=== PATIENT | female | born 1950 | race Caucasian/White ===

== ENCOUNTER 2017-02-09 07:32 | Emergency (ER) | payer OTHER, MEDICAID ==
--- NOTE | 2017-02-09 07:36 | EDPHY ---
HPI/HX/ROS/PE/MDM Narrative: CHIEF COMPLAINT: N/V/D HPI: The patient is a 66-year-old female who complains of nausea, vomiting, and diarrhea that started around 12 a.m. last night. She has associated abdominal discomfort secondary to vomiting and diarrhea. Patient ate BBQ yesterday and believes her symptoms are related to bad BBQ. She denies bloody stool or hematemesis. No fever. BP during transport was 156/108. REVIEW OF SYSTEMS: Aside from elements discussed in the HPI, a comprehensive 10-point review of systems was reviewed and is negative. PMH: HTN, Asthma PSH: Hysterectomy, Appendectomy. Previous large abdominal surgery that patient cannot describe. SOCIAL HISTORY: Homeless PHYSICAL EXAM: General: Patient is alert, in no acute distress. ENT: Eyes are normal to inspection. ENT inspection normal. Neck: Normal inspection. Full range of motion. Respiratory: No respiratory distress. Breath sounds normal bilaterally. Cardiovascular: Regular rate and rhythm. Strong peripheral pulses. Abdomen: The abdomen is nontender to palpation. There are no peritoneal signs. There are normal bowel sounds. Back: Normal to inspection. No tenderness to palpation. Skin: Normal color. No rash. Warm and dry. Extremities: Normal appearance. Full range of motion. Neuro: Oriented x3. Normal motor function. Normal sensory function. ED Course: Patient is receiving IV fluids. Plan to check basic lab work. Abdominal x-ray ordered. Patient is tolerating ice chips. She continues to have diarrhea. Plan for Imodium. MDM: This patient presents with nausea and diarrhea since last night that sounds most consistent with gastroenteritis or possible food-borne illness. She is afebrile and well-appearing, her abdomen is benign. She denies dysuria. Given history of prior surgeries, we performed an abdominal XR which is negative for obvious obstruction. The patient has a normal WBC. She is tolerating PO here in the ED without difficulty. I think diverticulitis, bowel obstruction, bowel perforation, abdominal trauma or pyelo are unlikely. - Data Points Imaging Results: Imaging Impressions Abdomen X-Ray 02/09/17 08:34 Impression: 1. No acute findings in the abdomen. 2. Probable hiatal hernia. 3. Left basilar atelectasis. Imaging: I viewed and interpreted images myself Laboratory Results: Laboratory Results 02/09/17 07:48 02/09/17 07:48 02/09/17 02/09/17 07:48 07:48 WBC 9.33 10^3/uL 10^3/uL (3.80-9.50) RBC 4.70 10^6/uL 10^6/uL (4.18-5.33) Hgb 14.6 g/dL g/dL (12.6-16.3) Hct 43.1 % % (38.0-47.0) MCV 91.7 fL fL (81.5-99.8) MCH 31.1 pg pg (27.9-34.1) MCHC 33.9 g/dL g/dL (32.4-36.7) RDW 12.4 % % (11.5-15.2) Plt Count 212 10^3/uL 10^3/uL (150-400) MPV 10.8 fL fL (8.7-11.7) Neut % (Auto) 91.0 % H % (39.3-74.2) Lymph % (Auto) 4.3 % L % (15.0-45.0) [place] % (Auto) 3.3 % L % (4.5-13.0) Eos % (Auto) 0.9 % % (0.6-7.6) Baso % (Auto) 0.1 % L % (0.3-1.7) Nucleat RBC Rel Count 0.0 % % (0.0-0.2) Absolute Neuts (auto) 8.49 10^3/uL H 10^3/uL (1.70-6.50) Absolute Lymphs (auto) 0.40 10^3/uL L 10^3/uL (1.00-3.00) Absolute Monos (auto) 0.31 10^3/uL 10^3/uL (0.30-0.80) Absolute Eos (auto) 0.08 10^3/uL 10^3/uL (0.03-0.40) Absolute Basos (auto) 0.01 10^3/uL L 10^3/uL (0.02-0.10) Absolute Nucleated RBC 0.00 10^3/uL 10^3/uL (0-0.01) Immature Gran % 0.4 % % (0.0-1.1) Immature Gran # 0.04 10^3/uL 10^3/uL (0.00-0.10) Sodium 145 mEq/L H mEq/L (134-144) Potassium 4.3 mEq/L mEq/L (3.5-5.2) Chloride 113 mEq/L H mEq/L (97-110) Carbon Dioxide 20 mEq/l L mEq/l (22-31) Anion Gap 12 mEq/L mEq/L (8-16) BUN 19 mg/dL mg/dL (7-23) Creatinine 0.7 mg/dL mg/dL (0.6-1.0) Estimated GFR > 60 Glucose 107 mg/dL H mg/dL (70-100) Calcium 9.2 mg/dL mg/dL (8.5-10.4) Total Bilirubin 0.5 mg/dL mg/dL (0.1-1.4) Conjugated Bilirubin 0.1 mg/dL mg/dL (0.0-0.5) Unconjugated Bilirubin 0.4 mg/dL mg/dL (0.0-1.1) AST 20 IU/L IU/L (14-46) ALT 27 IU/L IU/L (9-52) Alkaline Phosphatase 92 IU/L IU/L (38-126) Total Protein 6.8 g/dL g/dL (6.3-8.2) Albumin 3.7 g/dL g/dL (3.5-5.0) Lipase 41.0 IU/L IU/L (23-300) Medications Given: Discontinued Medications Sodium Chloride (Ns) 1,000 mls @ 0 mls/hr IV EDNOW ONE; Wide Open PRN Reason: Protocol Stop: 02/09/17 07:41 Last Admin: 02/09/17 07:46 Dose: 1,000 mls Loperamide HCl (Imodium) 4 mg PO EDNOW ONE Stop: 02/09/17 10:29 Last Admin: 02/09/17 10:30 Dose: 4 mg General Initial Vital Signs: Initial Vital Signs Temperature (C) 37.1 C 02/09/17 07:33 Heart Rate 114 H 02/09/17 07:33 Respiratory Rate 20 02/09/17 07:33 Blood Pressure 152/100 H 02/09/17 07:33 O2 Sat (%) 93 02/09/17 07:33 O2 Delivery Mode Room Air Allergies/Adverse Reactions: acetaminophen [From Darvocet-N] Allergy (Verified 06/15/16 09:14) codeine Allergy (Verified 06/15/16 09:14) propoxyphene napsylate [From Darvocet-N] Allergy (Verified 06/15/16 09:14) Home Medications: Medication Instructions Recorded Lisinopril/Hctz Unk Dose 08/10/14 Meclizine HCl [Meclizine HCl 25 mg 25 mg PO BID PRN #20 tab 08/10/14 (RX,OTC)] Ondansetron Odt [Zofran Odt] 4 mg PO Q4PRN PRN #20 tab 08/10/14 Qvar Unk Dose 08/10/14 Synthroid Unk Dose 08/10/14 Vicodin Unk Dose 08/10/14 Cephalexin [Keflex (RX)] 500 mg PO QID 7 Days 06/15/16 Doxycycline Hyclate [Vibramycin 100 mg PO BID #14 cap 06/15/16 100 MG (*)] Sulfamethox/Tmp 800/160 mg 1 tab PO BID #14 tab 06/15/16 [Bactrim Ds] Departure - Departure Disposition: Home, Routine, Self-Care Clinical Impression: Diarrhea Qualifiers: Diarrhea type: unspecified type Qualified Code(s): R19.7 - Diarrhea, unspecified Vomiting Qualifiers: Vomiting type: unspecified Vomiting Intractability: non-intractable Nausea presence: with nausea Qualified Code(s): R11.2 - Nausea with vomiting, unspecified Condition: Good Instructions: Acute Nausea and Vomiting (ED), Acute Diarrhea (ED) Additional Instructions: I recommend a clear liquid diet with gradual diet advancement over the next 24 hours. Followup with your primary care physician if symptoms persist. Return to the Emergency Department with new or worsening symptoms. Referrals: [facility],. [Clinic] - As per Instructions Report Scribed for: Jamie Lopez Report Scribed by: Jocelyn Weiss Date of Report: 02/09/17 Time of Report: 07:35 Physician Review and Approval Statement: Portions of this note were transcribed by a medical library assistant. I personally performed the history, physical exam, and medical decision-making; and confirmed the accuracy of the information in the transcribed note.
[2017-02-09 07:40] VITALS: RESP 20
[2017-02-09] MEDS ORDERED: NS 1,000 ML IV ONE (07:40)
[2017-02-09 08:02] LABS: % IMMATURE GRANULYOCYTES 0.4 % (0.0-1.1); ABSOLUTE IMMATURE GRANULOCYTES 0.04 10^3/uL (0.00-0.10); ADD DIFF? NO; ADD MORPH? NO; ADD SCAN? NO; ATYPICAL LYMPHOCYTE FLAG 0 (0-99); FRAGMENT RBC FLAG 0 (0-99); HEMATOCRIT 43.1 % (38.0-47.0); HEMOGLOBIN 14.6 g/dL (12.6-16.3); LEFT SHIFT FLG 0 (0-99); LIPEMIA HEMOLYSIS FLAG 90 (0-99); MEAN CELL HEMOGLOBIN 31.1 pg (27.9-34.1); MEAN CELL HEMOGLOBIN CONCENTR. 33.9 g/dL (32.4-36.7); MEAN CELL VOLUME 91.7 fL (81.5-99.8); MEAN PLATELET VOLUME 10.8 fL (8.7-11.7); PLATELET CLUMPS FLAG 10 (0-99); PLATELET COUNT 212 10^3/uL (150-400); RED CELL DISTRIBUTION WIDTH 12.4 % (11.5-15.2)
[2017-02-09 08:15] LABS: ALANINE AMINOTRANSFERASE 27 IU/L (9-52); ALBUMIN 3.7 g/dL (3.5-5.0); ALKALINE PHOSPHATASE 92 IU/L (38-126); ANION GAP 12 mEq/L (8-16); ASPARTATE AMINOTRANSFERASE 20 IU/L (14-46); BILIRUBIN,TOTAL 0.5 mg/dL (0.1-1.4); BILIRUBIN-CONJUGATED 0.1 mg/dL (0.0-0.5); BILIRUBIN-UNCONJUGATED 0.4 mg/dL (0.0-1.1); CALCIUM 9.2 mg/dL (8.5-10.4); CARBON DIOXIDE 20 mEq/l (22-31); CHLORIDE 113 mEq/L (97-110); CREATININE 0.7 mg/dL (0.6-1.0); GLOMERULAR FILTRATION RATE > 60; GLUCOSE 107 mg/dL (70-100); POTASSIUM 4.3 mEq/L (3.5-5.2); SODIUM 145 mEq/L (134-144); TOTAL PROTEIN 6.8 g/dL (6.3-8.2)
[2017-02-09] MEDS ORDERED: LOPERAMIDE HCL 2 MG CAP PO ONE (10:28)
[2017-02-09 10:33] VITALS: BP 131/88; PULSE 111; TEMP 98.1; O2SAT 94
== END 2017-02-09 10:59 | disposition home or self-care (01) ==
LOC: EDUNIT#
DX: R19.7 Diarrhea, unspecified (principal); R11.2 Nausea with vomiting, unspecified; E86.9 Volume depletion, unspecified; J45.909 Unspecified asthma, uncomplicated

== ENCOUNTER 2017-07-03 13:50 | Emergency (ER) | payer OTHER, MEDICAID ==
--- NOTE | 2017-07-03 13:53 | EDPHY ---
H & P Time Seen by Provider: 07/03/17 13:52 HPI/ROS: CHIEF COMPLAINT: Diarrhea, nausea HISTORY OF PRESENT ILLNESS: The patient presents the ED with a 1 day history of diarrhea and nausea. The patient reports no prior history of the symptoms. The patient has not been on recent antibiotics. The patient currently is [facility]. The patient takes medications for hypertension and hypothyroidism. The patient denies any drug or alcohol use. The patient does have a prior surgical history significant for appendectomy, cholecystectomy and . The patient denies any dysuria. The patient reports watery diarrhea without evidence of blood. She denies any hematemesis. She denies melena. REVIEW OF SYSTEMS: A comprehensive 10 point review of systems is otherwise negative aside from elements mentioned in the history of present illness. Source: Patient Exam Limitations: No limitations - Medical/Surgical History Hx Asthma: Yes Hx Chronic Respiratory Disease: No Hx Diabetes: No Hx Cardiac Disease: No Hx Renal Disease: No Hx Cirrhosis: No Hx Alcoholism: No Hx HIV/AIDS: No Hx Splenectomy or Spleen Trauma: No Other PMH: PMH: CHF,ASTHMA,HYPOTHYROID,HTN - Social History Smoking Status: Never smoked - Physical Exam Exam: General Appearance: Disheveled, no acute distress Eyes: Pupils equal and round no pallor or injection ENT, Mouth: Dry mucous membranes, poor dentition Respiratory: There are no retractions, lungs are clear to auscultation Cardiovascular: Regular rate and rhythm Gastrointestinal: Abdomen is soft and nontender, no masses, bowel sounds normal Neurological: A&O, normal motor function, normal sensory exam, normal cranial nerves Skin: Warm and dry, no rashes Musculoskeletal: Neck is supple nontender Extremities: symmetrical, full range of motion Psychiatric: Patient is oriented X 3, there is no agitation Constitutional: Initial Vital Signs Temperature (C) 36.7 C 07/03/17 13:58 Heart Rate 114 H 07/03/17 13:58 Respiratory Rate 18 07/03/17 13:58 Blood Pressure 168/87 H 07/03/17 13:58 O2 Sat (%) 93 07/03/17 13:58 O2 Delivery Mode Room Air Allergies/Adverse Reactions: acetaminophen [From Darvocet-N] Allergy (Verified 06/15/16 09:14) codeine Allergy (Verified 06/15/16 09:14) propoxyphene napsylate [From Darvocet-N] Allergy (Verified 06/15/16 09:14) Home Medications: Medication Instructions Recorded Lisinopril/Hctz Unk Dose 08/10/14 Meclizine HCl [Meclizine HCl 25 mg 25 mg PO BID PRN #20 tab 08/10/14 (RX,OTC)] Ondansetron Odt [Zofran Odt] 4 mg PO Q4PRN PRN #20 tab 08/10/14 Qvar Unk Dose 08/10/14 Synthroid Unk Dose 08/10/14 Vicodin Unk Dose 08/10/14 Cephalexin [Keflex (RX)] 500 mg PO QID 7 Days cap 06/15/16 Doxycycline Hyclate [Vibramycin 100 mg PO BID #14 cap 06/15/16 100 MG (*)] Sulfamethox/Tmp 800/160 mg 1 tab PO BID #14 tab 06/15/16 [Bactrim Ds] Medical Decision Making ED Course/Re-evaluation: The patient presents the ED for retching and diarrhea. She was noted to have a benign abdominal examination. The patient had an IV established. She received a L of normal saline for mild dehydration. She received an oral Imodium. Laboratory studies are noted to be within normal limits without evidence of significant metabolic abnormality or renal failure. The patient was observed in the emergency department. 4:00 p.m. she is feeling much better would like to be discharged home. She is advised to continue Imodium as needed for her diarrhea. She should return to the ED for any worsening abdominal pain, intractable vomiting, pain or other concerns. Differential Diagnosis: Differential diagnosis considered includes gastroenteritis, dehydration, metabolic abnormality - Data Points Laboratory Results: Laboratory Results 07/03/17 14:00 07/03/17 14:00 07/03/17 07/03/17 07/03/17 14:24 14:00 14:00 WBC 11.91 10^3/uL H 10^3/uL (3.80-9.50) RBC 5.08 10^6/uL 10^6/uL (4.18-5.33) Hgb 16.3 g/dL g/dL (12.6-16.3) POC Hgb 13.9 gm/dL gm/dL (12.6-16.3) Hct 47.1 % H % (38.0-47.0) POC Hct 41 % % (38-47) MCV 92.7 fL fL (81.5-99.8) MCH 32.1 pg pg (27.9-34.1) MCHC 34.6 g/dL g/dL (32.4-36.7) RDW 12.2 % % (11.5-15.2) Plt Count 300 10^3/uL 10^3/uL (150-400) MPV 10.8 fL fL (8.7-11.7) Neut % (Auto) 76.8 % H % (39.3-74.2) Lymph % (Auto) 16.3 % % (15.0-45.0) [place] % (Auto) 4.5 % % (4.5-13.0) Eos % (Auto) 1.8 % % (0.6-7.6) Baso % (Auto) 0.3 % % (0.3-1.7) Nucleat RBC Rel Count 0.0 % % (0.0-0.2) Absolute Neuts (auto) 9.14 10^3/uL H 10^3/uL (1.70-6.50) Absolute Lymphs (auto) 1.94 10^3/uL 10^3/uL (1.00-3.00) Absolute Monos (auto) 0.54 10^3/uL 10^3/uL (0.30-0.80) Absolute Eos (auto) 0.21 10^3/uL 10^3/uL (0.03-0.40) Absolute Basos (auto) 0.04 10^3/uL 10^3/uL (0.02-0.10) Absolute Nucleated RBC 0.00 10^3/uL 10^3/uL (0-0.01) Immature Gran % 0.3 % % (0.0-1.1) Immature Gran # 0.04 10^3/uL 10^3/uL (0.00-0.10) POC Sodium 145 mEq/L H mEq/L (134-144) Sodium 143 mEq/L mEq/L (134-144) POC Potassium 3.8 mEq/L mEq/L (3.3-5.0) Potassium 4.0 mEq/L mEq/L (3.5-5.2) POC Chloride 108 mEq/L mEq/L (97-110) Chloride 104 mEq/L mEq/L (97-110) Carbon Dioxide 26 mEq/l mEq/l (22-31) Anion Gap 13 mEq/L mEq/L (8-16) POC BUN 15 mg/dL mg/dL (7-23) BUN 15 mg/dL mg/dL (7-23) Creatinine 0.9 mg/dL mg/dL (0.6-1.0) POC Creatinine 0.8 mg/dL mg/dL (0.6-1.0) Estimated GFR > 60 Glucose 119 mg/dL H mg/dL (70-100) POC Glucose 100 mg/dL mg/dL (70-100) Calcium 10.3 mg/dL mg/dL (8.5-10.4) Medications Given: Discontinued Medications Sodium Chloride (Ns) 1,000 mls @ 0 mls/hr IV EDNOW ONE; Wide Open PRN Reason: Protocol Stop: 07/03/17 14:14 Last Admin: 07/03/17 14:13 Dose: 1,000 mls Sodium Chloride (Ns) 1,000 mls @ 0 mls/hr IV EDNOW ONE; Wide Open PRN Reason: Protocol Stop: 07/03/17 14:14 Last Admin: 07/03/17 14:33 Dose: 1,000 mls Loperamide HCl (Imodium) 4 mg PO EDNOW ONE Stop: 07/03/17 14:16 Last Admin: 07/03/17 14:33 Dose: 4 mg Point of Care Test Results: 07/03/17 14:24 POC Sodium 145 H POC Potassium 3.8 POC Chloride 108 POC BUN 15 POC Creatinine 0.8 POC Glucose 100 Departure - Departure Disposition: Home, Routine, Self-Care Clinical Impression: Dehydration, Diarrhea Condition: Good Instructions: Acute Diarrhea (ED) Additional Instructions: 1. Use Imodium as needed for diarrhea. 2. Return to the ED for severe pain, intractable vomiting, fever or other concerns. 3. Please follow up with your primary care provider at [facility] as needed. Referrals: Monica Cohn, PAC [Physician Correctional Program Officer] - As per Instructions
[2017-07-03 13:59] VITALS: RESP 18
[2017-07-03] MEDS ORDERED: NS 1,000 ML IV ONE ×2 (14:13)
[2017-07-03] MEDS ORDERED: LOPERAMIDE HCL 2 MG CAP PO ONE (14:15)
[2017-07-03 14:19] LABS: % IMMATURE GRANULYOCYTES 0.3 % (0.0-1.1); ABSOLUTE IMMATURE GRANULOCYTES 0.04 10^3/uL (0.00-0.10); ADD DIFF? NO; ADD MORPH? NO; ADD SCAN? NO; ATYPICAL LYMPHOCYTE FLAG 0 (0-99); FRAGMENT RBC FLAG 0 (0-99); HEMATOCRIT 47.1 % (38.0-47.0); HEMOGLOBIN 16.3 g/dL (12.6-16.3); LEFT SHIFT FLG 0 (0-99); LIPEMIA HEMOLYSIS FLAG 90 (0-99); MEAN CELL HEMOGLOBIN 32.1 pg (27.9-34.1); MEAN CELL HEMOGLOBIN CONCENTR. 34.6 g/dL (32.4-36.7); MEAN CELL VOLUME 92.7 fL (81.5-99.8); MEAN PLATELET VOLUME 10.8 fL (8.7-11.7); PLATELET CLUMPS FLAG 10 (0-99); PLATELET COUNT 300 10^3/uL (150-400); RED BLOOD CELL COUNT 5.08 10^6/uL (4.18-5.33); RED CELL DISTRIBUTION WIDTH 12.2 % (11.5-15.2)
[2017-07-03 14:33] LABS: ANION GAP 13 mEq/L (8-16); CALCIUM 10.3 mg/dL (8.5-10.4); CARBON DIOXIDE 26 mEq/l (22-31); CHLORIDE 104 mEq/L (97-110); CREATININE 0.9 mg/dL (0.6-1.0); GLOMERULAR FILTRATION RATE > 60; GLUCOSE 119 mg/dL (70-100); SODIUM 143 mEq/L (134-144)
[2017-07-03 16:14] VITALS: BP 167/92; PULSE 103; TEMP 97.9; O2SAT 96
== END 2017-07-03 16:14 | disposition home or self-care (01) ==
LOC: EDUNIT#
DX: R19.7 Diarrhea, unspecified (principal); E86.0 Dehydration; I11.0 Hypertensive heart disease with heart failure; I50.9 Heart failure, unspecified; J45.909 Unspecified asthma, uncomplicated; E86.9 Volume depletion, unspecified
CPT/HCPCS: 82947-QW